=== PATIENT | male | born 1975 | race Caucasian/White ===

== ENCOUNTER 2021-03-02 17:58 | Emergency (ER) | payer SELFPAY ==
[~2021-03-02] VITALS: Ht 172.7 cm; Wt 86.0 kg
[2021-03-02 18:02] VITALS: BP 147/86
[2021-03-02] MEDS ORDERED: SODIUM CHLORIDE 0.9% 1,000 ML IV ONE (18:45)
== END 2021-03-02 19:02 | disposition left against medical advice (07) ==
LOC: ER 17:58
DX: F10.129 Alcohol abuse with intoxication, unspecified (principal); Y90.9 Presence of alcohol in blood, level not specified; R00.0 Tachycardia, unspecified; S01.511A Laceration without foreign body of lip, initial encounter; X58.XXXA Exposure to other specified factors, initial encounter; Y93.89 Activity, other specified; Y92.480 Sidewalk as the place of occurrence of the external cause
CPT/HCPCS: 93005; 99283; J7030

== ENCOUNTER 2025-03-28 15:13 | Emergency (ER) | payer MEDICAID ==
[~2025-03-28] VITALS: Ht 175.3 cm; Wt 86.1 kg
[2025-03-28 15:19] VITALS: PULSE 93; O2SAT 98
[2025-03-28 15:29] VITALS: BP 132/93; RESP 16; TEMP 35.7; O2SAT 99
[2025-03-28 16:14] LABS: BASOPHILS % 1.3 % (0.0-2.0); EOSINOPHILS % 2.1 % (0.0-5.0); HEMATOCRIT. 46.3 % (42.0-52.0); HEMOGLOBIN. 15.9 g/dL (14.0-18.0); LYMPHOCYTES % 32.4 % (20.0-50.0); MEAN PLATELET VOLUME 8.4 fl (7.4-10.4); MONOCYTES % 11.3 % (2.0-8.0); NEUTROPHILS % 52.9 % (40.0-76.0); PLATELET 187 x1000/uL (130-400); RED BLOOD CELL COUNT 5.07 mill/uL (4.7-6.1); RED CELL DISTRIBUTION WIDTH 12.7 % (11.6-14.6)
[2025-03-28] MEDS: MAGNESIUM/ALUMINUM HYDROXIDE/SIMETHICONE 30ML UDC PO ONE (16:15)
[2025-03-28] MEDS: FAMOTIDINE 20MG TABLET PO SCH (16:15)
[2025-03-28 16:25] LABS: CREATININE 1.1 mg/dL (0.6-1.3)
[2025-03-28 16:26] LABS: PROTEIN TOTAL 7.1 g/dL (6.0-8.3); UREA NITROGEN BLOOD 11 mg/dL (9-23)
[2025-03-28 16:27] LABS: ASPARTATE AMINOTRANSFERASE 32 IU/L (<34); TROPONIN I HIGH SENSITIVITY 5 ng/L (3.0-53)
[2025-03-28 16:28] LABS: BILIRUBIN DIRECT 0.2 mg/dL (<=3.0); BILIRUBIN TOTAL 0.7 mg/dL (0.1-1.0)
[2025-03-28] MEDS ORDERED: MAG-55 MT (18:44)
[2025-03-28] MEDS ORDERED: LIDO-53 TP (18:44)
== END 2025-03-28 19:40 | disposition home or self-care (01) ==
LOC: ER 15:13
DX: K21.9 Gastro-esophageal reflux disease without esophagitis (principal); R07.89 Other chest pain
CPT/HCPCS: 36415; 71045; 80053; 80076; 84484; 85025; 93005; 99285